=== PATIENT | male | born 2000 | race Caucasian/White ===

== ENCOUNTER 2023-02-18 23:59 | Emergency (ER) | payer MEDICAID ==
[~2023-02-18] VITALS: Ht 182.9 cm; Wt 106.2 kg
[2023-02-19 01:39] VITALS: BP 128/63; PULSE 67; RESP 16; TEMP 98; O2SAT 100
[2023-02-19] MEDS ORDERED: IBUP-2028 MT (02:02)
== END 2023-02-19 02:12 | disposition home or self-care (01) ==
LOC: ER 23:59
DX: S60.032A Contusion of left middle finger without damage to nail, initial encounter (principal); X58.XXXA Exposure to other specified factors, initial encounter; Y93.89 Activity, other specified; Y92.89 Other specified places as the place of occurrence of the external cause; Y99.8 Other external cause status
CPT/HCPCS: 73140; 99283